=== PATIENT | male | born 2000 | race Caucasian/White ===

== ENCOUNTER 2022-03-17 18:57 | Emergency (ER) | payer OTHER ==
[2022-03-17 19:34] LABS: HEMOGLOBIN 14.7 gm/dl (14.0-17.5); RED BLOOD COUNT 4.75 M/UL (4.20-5.50); WHITE BLOOD COUNT 15.1 K/UL (4.5-11.0)
[2022-03-17 19:53] LABS: BUN/CREATININE RATIO 14 (0-10)
== END 2022-03-17 23:08 | disposition left against medical advice (07) ==
LOC: ER1 18:57
PROVIDERS: Family Medicine
DX: R30.0 Dysuria (principal)
CPT/HCPCS: 80053; 81001; 83690; 85025; 87086; 99281